=== PATIENT | male | born 1985 | race Caucasian/White ===

== ENCOUNTER 2017-04-08 16:16 | Emergency (ER) | payer OTHER ==
[2017-04-08 16:46] VITALS: BP 133/74; PULSE 75; RESP 12; TEMP 98.1; O2SAT 100
[2017-04-08] MEDS ORDERED: CIPR-9 PO (17:31)
--- NOTE | 2017-04-08 17:57 | PD ---
HPI Chief Complaint: Back/ Neck Pain or Injury Time Seen by Provider: 17:50 Travel History International Travel<30 days: No Contact w/Intl Traveler<30days: No Traveled to known affect area: No History of Present Illness HPI 31-year-old male presents to the emergency Department with complaint of mid back pain 2 days after doing a squat exercise while lifting weights. He said he heard a "pop" in his back. The pain has worsened over the past 2 days. He denies paresthesias, loss of sensation, decreased range of motion, decreased strength bilateral extremities. Denies encopresis, incontinence, saddle anesthesias. Denies IV drug use or cancer. Denies Fever, vomiting. Has taken ibuprofen for symptom management. Patient states he is currently taking ciprofloxacin for epididymitis. Has no other medical complaints. No known allergies. No other modifying factors or associated signs and symptoms. PFSH Past Medical History Diminished Hearing: No Genitourinary: Yes (epidimytis) Immunizations Current: Yes Tetanus Vaccination: Unknown Influenza Vaccination: No Past Surgical History Surgical History: No Previous Surgery Social History Alcohol Use: Yes (occ) Tobacco Use: No Substance Use: No Allergies-Medications (Allergen,Severity, Reaction): Coded Allergies: No Known Allergies (Unverified , 04/08/17) Reported Meds & Prescriptions Reported Meds & Active Scripts Active Flexeril (Cyclobenzaprine HCl) 10 Mg Tab 10 Mg PO TID PRN Ibuprofen 800 Mg Tab 800 Mg PO Q6HR PRN Reported Cipro (Ciprofloxacin HCl) 500 Mg Tab 500 Mg PO BID Review of Systems Except as stated in HPI: all other systems reviewed are Neg Physical Exam Narrative GENERAL: Well-nourished, well-developed male patient, in no acute distress; afebrile, nontoxic-appearing SKIN: Warm and dry. HEAD: Atraumatic. Normocephalic. EYES: Pupils equal and round. No scleral icterus. No injection or drainage. ENT: Mucosa pink and moist. Airway patent. NECK: Trachea midline. CARDIOVASCULAR: Regular rate. RESPIRATORY: No accessory muscle use. GASTROINTESTINAL: Flat. MUSCULOSKELETAL: Bilateral lower extremities supple and non-tense with 2+ pedal pulses and sensory intact; with full range of motion and 5/5 strength. 2 + DTRs bilaterally. Active dorsiflexion and extension of bilateral feet. Bilateral straight leg raise is positive for mid back pain. Ambulatory in room with guarded gait. Sitting up in bed at 90. No obvious deformities. No clubbing. No cyanosis. No edema. BACK: No midline point tenderness on palpation of the lumbar spine. Midline point tenderness on palpation of the lower thoracic spine. No tenderness on palpation of the bilateral musculature of the thoracic or lumbar areas. No obvious deformities. NEUROLOGICAL: Awake and alert. Oriented 3. No obvious cranial nerve deficits. Motor grossly within normal limits. Normal speech. Moves all extremities. 5/5 strength to all extremities. Sensory intact. PSYCHIATRIC: Appropriate mood and affect; insight and judgment normal. Data Data Last Documented VS Vital Signs Date Time Temp Pulse Resp B/P Pulse Ox O2 Delivery O2 Flow Rate FiO2 04/08/17 16:46 98.1 75 12 133/74 100 Orders Spine, Thoracic-Ap/Lat/Sw(3vw) (04/08/17 17:56) Ketorolac Inj (Toradol Inj) (04/08/17 18:00) Orphenadrine Inj (Norflex Inj) (04/08/17 18:00) MDM Medical Decision Making Medical Screen Exam Complete: Yes Emergency Medical Condition: Yes Medical Record Reviewed: Yes Differential Diagnosis Thoracic back strain, low back strain, muscle spasms Narrative Course 31-year-old male physical examination consistent with thoracic back strain. He does have midline tenderness on palpation of the lower thoracic spine. Denies IV drug use or cancer. Denies fever or vomiting. Patient is afebrile and nontoxic-appearing. He denies encopresis, incontinence, saddle anesthesias. Toradol and Norflex administered in the ER. Thoracic spine x-rays ordered. Thoracic spine x-ray with no acute findings. Patient discharged home with prescription for Flexeril and ibuprofen. Patient verbalizes understanding and agreement with treatment plan. Patient is medically cleared and stable for discharge. Discussed reasons to return to the emergency department. Instructed patient to follow up with primary care provider. Patient agrees with treatment plan. The patients vital signs are stable and the patient is stable for outpatient follow-up and treatment. Patient discharged home, stable and in no acute distress. Diagnosis Primary Impression: Strain of thoracic spine Qualified Code: S29.019A - Strain of thoracic spine, initial encounter Referrals: Primary Care Physician Patient Instructions: General Instructions, Muscle Spasm (ED), Muscle Strain ( ED), Thoracic Back Strain (ED) Departure Forms: Tests/Procedures, Work Release Enter return to work date: Apr 13, 2017 Additional Instructions: Tylenol or ibuprofen as directed and as needed to reduce pain Flexeril as prescribed for muscle spasms Get adequate rest Ice and/or heating pad to affected area to reduce pain Avoid aggravating activity; increase activity as tolerated Follow-up with primary care provider Return to the emergency department immediately with worsening symptoms Med/Other Pt SpecificInfo: Prescription(s) given Scripts Cyclobenzaprine (Flexeril)10 Mg Tab10 Mg PO TID PRN (MUSCLE SPASM) #30 TAB Ref 0 Prov:Cassandra Rangel 04/08/17 Ibuprofen 800 Mg [id number] Mg PO Q6HR PRN (PAIN) #30 TAB Ref 0 Prov:Cassandra Rangel 04/08/17 Disposition: 01 DISCHARGE HOME Condition: Stable Cassandra Rangel Apr 08, 2017 17:57
[2017-04-08] MEDS ORDERED: ORPHENADRINE INJ 60 MG/2 ML AMP IM ONE (18:00)
[2017-04-08] MEDS ORDERED: KETOROLAC TROMETHAMINE 60 MG/2 ML (IM) VIAL IM ONE (18:00)
[2017-04-08] MEDS ORDERED: IBUP800T23 PO (18:35)
[2017-04-08] MEDS ORDERED: CYCL1TAB29 PO (18:35)
--- NOTE | 2017-04-08 19:11 | RADRPT ---
EXAM DATE/TIME: 04/08/2017 18:41 [facility] COMPARISON: No previous studies available for comparison. INDICATIONS : Thoracic spine pain after patient was lifting weights 2 days ago MEDICAL HISTORY : None. SURGICAL HISTORY : None. ENCOUNTER: Initial ACUITY: 2 days PAIN SCORE: 10/10 LOCATION: Thoracic spine FINDINGS: 4 views of the thoracic spine demonstrate no fracture or compression deformity. There is no anterolis thesis or retrolisthesis. Disc heights are preserved. Visualized surrounding structures demonstrate no acute abnormality. CONCLUSION: No acute thoracic spine abnormality is identified. Osiel Bates MD on April 08, 2017 at 19:08 Board Certified Radiologist. This report was verified electronically.
== END 2017-04-08 19:32 | disposition home or self-care (01) ==
LOC: NEPK 16:16
DX: S29.019A Strain of muscle and tendon of unspecified wall of thorax, initial encounter (principal); X50.0XXA Overexertion from strenuous movement or load, initial encounter; Y93.B3 Activity, free weights; Z79.899 Other long term (current) drug therapy
CPT/HCPCS: 72072; 96372; 99284; J1885; J2360